=== PATIENT | female | born 1975 | race African-American/Black ===

== ENCOUNTER 2016-12-01 13:54 | Emergency (ER) | payer OTHER ==
[~2016-12-01] VITALS: Ht 180.3 cm; Wt 90.7 kg
[~2016-12-01 13:54] MED LIST: ACETAMINOPHEN-1 EAC1 PO; BESIVANCE5 ML OP; IBUPROFEN 800800 M1 PO; NOHOMEMEDICATIONS; ULTRAM 50MG TAB50 MG PO; VENTOLIN HFA 1818 GM INH; ZOFRAN4 MG PO; ZPAK PO
[2016-12-01 14:35] LABS: URINE BILIRUBIN NEGATIVE (Negative); URINE BLOOD TRACE (Negative); URINE COLOR YELLOW; URINE GLUCOSE-RANDOM* NEGATIVE (Negative); URINE KETONES NEGATIVE (Negative); URINE LEUKOCYTES-REFLEX NEGATIVE (Negative); URINE PROTEIN (DIPSTICK) NEGATIVE (Negative); URINE SPECIFIC GRAVITY >= 1.030 (1.003-1.035); URINE UROBILINOGEN 0.2 E.U./dl (0.2-1.0)
[2016-12-01 15:09] LABS: ABSOLUTE NEUTROPHILS 5.7 thou/uL (1.4-8.2); BASOPHILS 1.3 % (0.0-2.0); EOSINOPHILS 0.9 % (0.0-3.0); HEMATOCRIT 45.6 % (37.0-47.0); HEMOGLOBIN 15.9 gm/dL (12.0-15.0); MANUAL DIFF NO; MCV 97.2 fL (80.0-100.0); MONOCYTES 5.8 % (1.0-8.0); PLATELET COUNT 272 thou/uL (150-400); RBC 4.69 mil/uL (4.20-5.00); RDW 13.8 % (10.5-14.5)
[2016-12-01 15:17] LABS: CALCIUM 9.2 mg/dL (8.5-10.1); CREATININE 0.8 mg/dL (0.6-1.0); POTASSIUM 3.6 mmol/L (3.5-5.1)
[2016-12-01] MEDS ORDERED: TRAMADOL 50 MG50 MG PO (15:21)
[2016-12-01] MEDS ORDERED: ROBAXIN500 MG PO (15:21)
[2016-12-01] MEDS ORDERED: NAPROSYN500 MG PO (15:21)
[2016-12-01 15:23] LABS: TOTAL BILIRUBIN 0.5 mg/dL (<0.1-1.0)
[2016-12-01 16:47] VITALS: BP 120/84
== END 2016-12-01 16:48 | disposition home or self-care (01) ==
LOC: ER 13:54
PROVIDERS: Emergency Medicine
DX: M54.5 Low back pain (principal); R10.31 Right lower quadrant pain; F17.210 Nicotine dependence, cigarettes, uncomplicated; Z90.711 Acquired absence of uterus with remaining cervical stump; Z88.6 Allergy status to analgesic agent; Z88.5 Allergy status to narcotic agent

== ENCOUNTER 2018-09-27 20:44 | Emergency (ER) | payer OTHER ==
[~2018-09-27] VITALS: Ht 180.3 cm; Wt 79.4 kg
[~2018-09-27 20:44] MED LIST changes: +NAPROSYN500 MG PO; +ROBAXIN500 MG PO; +TRAMADOL 50 MG50 MG PO
[2018-09-27] MEDS ORDERED: ULTRAM 50MG TAB50 MG PO (22:18)
[2018-09-27 22:28] VITALS: BP 138/92
== END 2018-09-27 22:30 | disposition home or self-care (01) ==
LOC: ER 20:44
DX: S93.492A Sprain of other ligament of left ankle, initial encounter (principal); F17.210 Nicotine dependence, cigarettes, uncomplicated; Z90.711 Acquired absence of uterus with remaining cervical stump; Z88.6 Allergy status to analgesic agent; Z88.5 Allergy status to narcotic agent; Z88.8 Allergy status to other drugs, medicaments and biological substances; W18.39XA Other fall on same level, initial encounter; Y93.89 Activity, other specified; Y92.89 Other specified places as the place of occurrence of the external cause; Y99.8 Other external cause status